=== PATIENT | female | born 1955 | race Caucasian/White ===

== ENCOUNTER 2019-06-09 23:43 | Emergency (ER) | payer MEDICAID ==
[~2019-06-09] VITALS: Ht 152.4 cm; Wt 65.8 kg
[2019-06-09 23:50] VITALS: BP_SYST 130
[2019-06-10] MEDS ORDERED: MORPHINE 2 MG/ML INJ. SYRINGE IVP ONE (00:30)
[2019-06-10] MEDS ORDERED: methylPREDNISolone SOD SUCC/PF 62.5 MG/ML VIAL IVP ONE (00:30)
[2019-06-10] MEDS ORDERED: ONDANSETRON HCL 4 MG/2 ML VIAL IVP ONE (00:30)
[2019-06-10 01:13] LABS: BASOPHILS % (AUTO) 0.5 % (0.0-2.0); EOSINOPHILS # (AUTO) 0.1 K/uL (0.0-0.4); EOSINOPHILS % (AUTO) 0.7 % (0.0-4.0); HEMATOCRIT 36.4 % (36-48); HEMOGLOBIN 12.6 g/dL (12.0-16.0); LYMPHOCYTES # (AUTO) 1.3 K/uL (1.0-5.5); LYMPHOCYTES % (AUTO) 15.6 % (20.5-51.5); MEAN CORPUSCULAR HEMOGLOBIN 33 pg (27-31); MEAN CORPUSCULAR HGB CONC 35 % (32-36); MEAN CORPUSCULAR VOLUME 96 fL (79.0-98.0); MONOCYTES # (AUTO) 0.5 K/uL (0.0-1.0); MONOCYTES % (AUTO) 5.6 % (1.7-9.3); NEUTROPHILS # (AUTO) 6.7 K/uL (1.8-7.7); NEUTROPHILS % (AUTO) 77.6 % (40.0-70.0); PLATELET COUNT (AUTO) 320 K/uL (130-430); RED BLOOD CELL COUNT(AUTO) 3.79 MIL/uL (4.2-6.2); RED CELL DISTRIBUTION WIDTH 13.8 % (9.0-15.0); WHITE BLOOD COUNT (AUTO) 8.6 K/uL (4.8-10.8)
[2019-06-10 01:25] LABS: CALCIUM 9.5 mg/dL (8.4-11.0); CREATININE 0.97 mg/dL (0.55-1.30); POTASSIUM 3.6 mmol/L (3.5-5.1)
[2019-06-10 01:28] LABS: INR 0.9 (0.8-1.2); PROTHROMBIN TIME 9.1 SECS (9.5-12.5)
[2019-06-10 01:33] LABS: ALBUMIN 3.5 g/dL (3.4-4.8); TOTAL BILIRUBIN 0.1 mg/dL (0.0-1.0)
[2019-06-10 02:44] VITALS: BP_SYST 130
== END 2019-06-10 02:44 | disposition home or self-care (01) ==
LOC: SED 23:43
DX: M13.832 Other specified arthritis, left wrist (principal)
CPT/HCPCS: 29125; 36415; 71045; 73110; 80053; 82550; 84484; 85025; 85610; 85730; 93005; 93971; 96374; 96375; 99284; J2270; J2405; J2930

== ENCOUNTER 2020-09-24 14:11 | Emergency (ER) | payer MEDICAID ==
[~2020-09-24] VITALS: Ht 154.9 cm; Wt 61.2 kg
[2020-09-24 14:28] VITALS: BP_SYST 135
[2020-09-24] MEDS ORDERED: IBUPROFEN 800 MG TABLET PO ONE (14:30)
[2020-09-24 15:22] LABS: BASOPHILS % (AUTO) 0.7 % (0.0-2.0); EOSINOPHILS % (AUTO) 0.7 % (0.0-4.0); HEMATOCRIT 34.9 % (36-48); LYMPHOCYTES # (AUTO) 2.1 K/uL (1.0-5.5); LYMPHOCYTES % (AUTO) 31.2 % (20.5-51.5); MEAN CORPUSCULAR HEMOGLOBIN 32 pg (27-31); MEAN CORPUSCULAR HGB CONC 34 % (32-36); MEAN CORPUSCULAR VOLUME 94 fL (79.0-98.0); MONOCYTES # (AUTO) 0.5 K/uL (0.0-1.0); NEUTROPHILS % (AUTO) 60.4 % (40.0-70.0); PLATELET COUNT (AUTO) 308 K/uL (130-430); RED BLOOD CELL COUNT(AUTO) 3.73 MIL/uL (4.2-6.2); WHITE BLOOD COUNT (AUTO) 6.6 K/uL (4.8-10.8)
[2020-09-24 15:47] LABS: CREATININE 0.78 mg/dL (0.55-1.30); POTASSIUM 3.8 mmol/L (3.5-5.1)
[2020-09-24 15:56] LABS: ALBUMIN 3.4 g/dL (3.4-4.8); TOTAL BILIRUBIN 0.1 mg/dL (0.0-1.0); URIC ACID 3.8 mg/dL (2.4-7.0)
[2020-09-24 16:05] LABS: C-REACTIVE PROTEIN QUANT 0.8 mg/dL (0-0.5)
[2020-09-24 16:12] LABS: INR 0.9 (0.8-1.2); PROTHROMBIN TIME 9.3 SECS (9.5-12.5)
[2020-09-24 16:27] VITALS: BP_SYST 135
[2020-09-24 16:49] LABS: ERYTHROCYTE SEDIMENTATION RATE 33 MM/HR (0-20)
== END 2020-09-24 16:27 | disposition home or self-care (01) ==
LOC: SED 14:11
DX: M76.62 Achilles tendinitis, left leg (principal)
CPT/HCPCS: 36415; 80053; 84550-TC; 85025; 85610-TC; 85651-TC; 85730-TC; 86140; 99284

== ENCOUNTER 2021-08-09 10:27 | Emergency (ER) | payer MEDICAID ==
[~2021-08-09] VITALS: Ht 152.4 cm; Wt 56.7 kg
[2021-08-09 10:35] VITALS: BP_SYST 135
--- NOTE | 2021-08-09 10:35 | NUR ---
Patient to ER bed 2 to gown for evaluation. Side rails up. Report given to GARLAND RANDALL.
[2021-08-09] MEDS ORDERED: BENZ-16 PO (12:29)
[2021-08-09 12:34] VITALS: BP_SYST 133
--- NOTE | 2021-08-09 12:35 | NUR ---
Patient given written and verbal discharge instructions and verbalizes understanding. JENNIFER LOMAX MD discussed with patient the results and treatment provided. Patient in stable condition. ID arm band removed. Patient educated on pain management and to follow up with PMD. Pain Scale 0. Opportunity for questions provided and answered. Medication side effect fact sheet provided.
== END 2021-08-09 12:35 | disposition home or self-care (01) ==
LOC: SED 10:27
DX: J06.9 Acute upper respiratory infection, unspecified (principal); Z20.822 Contact with and (suspected) exposure to COVID-19
CPT/HCPCS: 71045; 86710; 99284; C9803; U0003; 36415

== ENCOUNTER 2021-09-21 13:40 | Emergency (ER) | payer MEDICAID, SELFPAY ==
[~2021-09-21] VITALS: Ht 165.1 cm; Wt 59.0 kg
[~2021-09-21 13:40] MED LIST: BENZ-16 PO
[2021-09-21 13:48] VITALS: BP_SYST 155
--- NOTE | 2021-09-21 13:48 | NUR ---
Pt. came in with c/o pain to right wrist 06/11, states last night a fence fell and hit her wrist
--- NOTE | 2021-09-21 14:57 | NUR ---
ER in triage examining patient.
[2021-09-21] MEDS ORDERED: ACETAMINOPHEN 500 MG TABLET PO ONE (15:15)
[2021-09-21] MEDS ORDERED: ACET-2634 PO (15:28)
[2021-09-21 16:00] VITALS: BP_SYST 114
--- NOTE | 2021-09-21 16:00 | NUR ---
Patient given written and verbal discharge instructions and verbalizes understanding. ER Dr. Loya discussed with patient the results and treatment provided. Patient in stable condition. ID arm band removed. Rx of Extra Strength Tylenol given. Patient educated on pain management and to follow up with PMD. Pain Scale 4. Opportunity for questions provided and answered. Medication side effect fact sheet provided.
== END 2021-09-21 16:00 | disposition home or self-care (01) ==
LOC: SED 13:40
DX: S63.501A Unspecified sprain of right wrist, initial encounter (principal); Z79.899 Other long term (current) drug therapy; W20.8XXA Other cause of strike by thrown, projected or falling object, initial encounter; Y93.89 Activity, other specified; Y92.89 Other specified places as the place of occurrence of the external cause; Y99.8 Other external cause status
CPT/HCPCS: 99283

== ENCOUNTER 2021-12-14 08:35 | Emergency (ER) | payer MEDICAID ==
[~2021-12-14] VITALS: Ht 152.4 cm; Wt 56.7 kg
[~2021-12-14 08:35] MED LIST changes: +ACET-2634 PO
[2021-12-14 08:50] VITALS: BP_SYST 125
--- NOTE | 2021-12-14 08:50 | NUR ---
Pt to bed 7 for evaluation.
--- NOTE | 2021-12-14 08:55 | NUR ---
Pt AAO and ambulatory reporting intermittent abdominal pain that started last night at midnight. Pt reports that the pain woke her from sleep and she describes it as sharp. Pt rates pain 7/10 on pain scale.
--- NOTE | 2021-12-14 09:00 | NUR ---
Endorsed care to GARLAND Del Valle who will assume care.
--- NOTE | 2021-12-14 09:10 | NUR ---
MD JACOBSEN AT BEDSIDE FOR EVALUATION.
[2021-12-14] MEDS ORDERED: PHEN-726 PO (09:55)
[2021-12-14] MEDS ORDERED: NITR-85 PO (09:55)
[2021-12-14 10:07] VITALS: BP_SYST 125
--- NOTE | 2021-12-14 10:09 | NUR ---
Patient given written and verbal discharge instructions and verbalizes understanding. DR.KWAW JENNIFER BOWLES discussed with patient the results and treatment provided. Patient in stable condition. ID arm band removed. Rx of MACROBID, PYRIDIUM given. Patient educated on pain management and to follow up with PMD. Pain Scale 0/10 Opportunity for questions provided and answered. Medication side effect fact sheet provided.
[2021-12-14 10:20] LABS: BILIRUBIN,URINE NEGATIVE (NEGATIVE); BLOOD, URINE 2+ (NEGATIVE); COLOR,URINE YELLOW (YELLOW); GLUCOSE,URINE NEGATIVE (NEGATIVE); KETONES,URINE NEGATIVE (NEGATIVE); LEUKOCYTE ESTERASE ,URINE NEGATIVE (NEGATIVE); NITRITE, URINE NEGATIVE (NEGATIVE); PROTEIN URINE NEGATIVE (NEGATIVE); UROBILINOGEN,URINE 0.2 (0.2-1.0)
[2021-12-14 10:22] LABS: CLARITY/URINE SLIGHTLY CLOUDY (CLEAR)
[2021-12-14 11:04] LABS: BACTERIA,URINE FEW /HPF (None Seen); WBC,URINE NONE SEEN /HPF (0-3)
== END 2021-12-14 10:09 | disposition home or self-care (01) ==
LOC: SED 08:35
DX: N39.0 Urinary tract infection, site not specified (principal); Z79.899 Other long term (current) drug therapy
CPT/HCPCS: 81000; 99283